=== PATIENT | male | born 1975 | race African-American/Black ===

== ENCOUNTER 2018-11-24 02:31 | Emergency (ER) | payer MEDICAID ==
[~2018-11-24] VITALS: Ht 182.9 cm; Wt 77.1 kg
[2018-11-24 02:36] VITALS: Ht 182.9 cm; Wt 77.1 kg
--- NOTE | 2018-11-24 03:03 | NUR ---
PT WHEELCHAIRED TO RM
--- NOTE | 2018-11-24 03:04 | NUR ---
PT C/O RIGHT 1ST TOE PAIN X2 DAYS PT STS "I WAS HOPPING A FENCE AND INJURED MY FOOT" PT STS HX TYPE 2 DM. PT AAOX4, RESPS E/U, SKIN TEAR NOTED WITH SWELLING TO 1ST TOE, BLEEDING CONTROLLED, +PSC WITH DEC MOBILITY D/T PAIN TO RLE, NO DEFORMITIES NOTED
--- NOTE | 2018-11-24 03:04 | NUR ---
PT C/O RIGHT 1ST TOE PAIN X2 DAYS PT STS "I WAS HOPPING A FENCE AND INJURED MY FOOT" PT STS HX TYPE 2 DM. PT AAOX4, RESPS E/U, LACERATION NOTED WITH SWELLING TO 1ST TOE, BLEEDING CONTROLLED, +PSC WITH DEC MOBILITY D/T PAIN TO RLE, NO DEFORMITIES NOTED
--- NOTE | 2018-11-24 03:52 | NUR ---
PT IN POSITION OF COMFORT LISTENING TO MUSIC ON PHONE, RESPS E/U, VSS, FRIEND AT BEDSIDE, CALL LIGHT WITHIN REACH
--- NOTE | 2018-11-24 04:21 | NUR ---
LAB AT BEDSIDE
--- NOTE | 2018-11-24 04:38 | NUR ---
PT IN POSITION OF COMFORT TALKING ON PHONE, RESPS E/U, VSS, URINAL PLACED AT BEDSIDE, AX INFUSING, CALL LIGHT WITHIN REACH, WILL CONTINUE TO MONITOR
[2018-11-24] MEDS ORDERED: METFORMIN HYDR500 M1 PO (04:43)
[2018-11-24] MEDS ORDERED: EPZICOM1 TAB (04:44)
[2018-11-24 04:46] LABS: BASOPHIL % 0.1 % (0-2); PLATELET COUNT 459 x10^3mcL (130-400); RED CELL DISTRIBUTION WIDTH 14.6 % (11.5-14.5)
[2018-11-24 04:56] LABS: CALCIUM 8.9 mg/dL (8.5-10.1); CARBON DIOXIDE 25.5 mmol/L (21-32); CHLORIDE SERUM 96 mmol/L (98-107); GFR1 > 60 mL/min; GLUCOSE SERUM 314 mg/dL (74-106); SODIUM SERUM 132 mmol/L (136-145)
[2018-11-24 05:01] LABS: ALKALINE PHOSPHATASE 192 U/L (46-116); ALT/SGPT 64 U/L (16-63); AST/SGOT 27 U/L (15-37); BILIRUBIN TOTAL 0.56 mg/dL (0.20-1.00); TOTAL PROTEIN, SERUM 7.9 g/dL (6.4-8.2)
[2018-11-24 05:02] LABS: ALBUMIN 2.6 g/dL (3.4-5.0)
--- NOTE | 2018-11-24 05:35 | NUR ---
PHOTO TAKEN OF RIGHT 1ST TOE WOUND AND PLACED IN PT CHART
--- NOTE | 2018-11-24 05:40 | NUR ---
WOUND CULTURE SPECIMEN COLLECTED AND SENT TO LOB
--- NOTE | 2018-11-24 05:42 | NUR ---
PT IN POSITION OF COMFORT TALKING WITH FRIEND IN RM, RESPS E/U, CALL LIGHT WITHIN REACH, INSTRUCTED TO CALL IF ANY ASSITANCE NEEDED
[2018-11-24 05:58] LABS: MAGNESIUM 1.9 mg/dL (1.8-2.4); PHOSPHOROUS 3.7 mg/dL (2.5-4.9)
[2018-11-24 05:59] LABS: CHOLESTEROL/HDL RATIO 3.9
--- NOTE | 2018-11-24 06:32 | NUR ---
PORTABLE XRAY AT BEDSIDE
--- NOTE | 2018-11-24 06:59 | NUR ---
PER RN KARINA EVANS PT STATED "I AM GOING OUTSIDE TO GO SMOKE A CIGARETTE I KNOW THEY'VE TOLD ME MANY TIMES I CAN'T BUT I AM BUT I WILL COME BACK" PT HAD CHANGED OUT OF HOSPITAL GOWN BACK INTO HIS PLAID BUTTON UP SHIRT. PT HAD A 20 G LAC IV IN PLACE WHEN EXITING HOSPITAL DOORS. KAMILA JOY CONTACTED
[2018-11-24 07:15] VITALS: BP 125/76
--- NOTE | 2018-11-24 07:15 | NUR ---
REPORT GIVEN TO KELLEE PUGA RN
--- NOTE | 2018-11-24 07:15 | NUR ---
PER RN KARINA EVANS PT STATED "I AM GOING OUTSIDE TO GO SMOKE A CIGARETTE I KNOW THEY'VE TOLD ME MANY TIMES I CAN'T BUT I AM BUT I WILL COME BACK" PT HAD CHANGED OUT OF HOSPITAL GOWN BACK INTO HIS PLAID BUTTON UP SHIRT. PT HAD A 20 G LAC IV IN PLACE WHEN EXITING HOSPITAL DOORS. PER KARINA EVANS RN PODIATRY RESIDENTS AT BEDSIDE AND WITNESSED THIS WELL AND THEY STATED "THAT IS FINE" KAMILA JOY CONTACTED
[2018-11-24 07:18] LABS: microscopic required? YES; urine erythrocyte NEGATIVE (NEGATIVE)
--- NOTE | 2018-11-24 07:20 | NUR ---
REPORT GIVEN TO KELLEE RN
[2018-11-24 07:43] LABS: AMPHETAMINE QUAL UR POSITIVE (See below)
== END 2018-11-24 07:15 | disposition left against medical advice (07) ==
LOC: ED 02:31 → MU 04:56
PROVIDERS: Emergency Medicine; Internal Medicine
DX: E11.621 Type 2 diabetes mellitus with foot ulcer (principal); L03.115 Cellulitis of right lower limb; E11.65 Type 2 diabetes mellitus with hyperglycemia; D72.829 Elevated white blood cell count, unspecified; S90.111A Contusion of right great toe without damage to nail, initial encounter; X58.XXXA Exposure to other specified factors, initial encounter; Y93.39 Activity, other involving climbing, rappelling and jumping off; Y92.89 Other specified places as the place of occurrence of the external cause; Y99.8 Other external cause status
CPT/HCPCS: 83880; 90715; J2543; J3370; J7040; Q0092